=== PATIENT | male | born 1975 | race Caucasian/White ===

== ENCOUNTER 2017-07-25 08:10 | Emergency (ER) | payer OTHER ==
[~2017-07-25] VITALS: Ht 188 cm; Wt 95.0 kg
[~2017-07-25 08:10] MED LIST: PROT40TA PO
[2017-07-25 08:11] VITALS: BP 122/69; PULSE 85; RESP 16; TEMP 97.9; O2SAT 97
[2017-07-25 09:01] LABS: BLOOD, URINE TRACE (NEG); GLUCOSE,URINE NEG (NEG); KETONE, URINE NEG (NEG); NITRITE,URINE NEG (NEG); PH, URINE 6.5 (5.0-8.5)
[2017-07-25 09:13] LABS: METHOD OF COLLECTION CLEAN CATCH; URINE COLOR YELLOW (YELLW/STRAW)
[2017-07-25 09:14] LABS: COMMENT (UR) CULT NOT INDICATED; CULTURE IF INDICATED CULT NOT INDICATED; RBC, URINE 0-3 /hpf (0-3); WBC, URINE 0-2 /hpf (0-5)
--- NOTE | 2017-07-25 09:46 | PD ---
HPI Chief Complaint: Complaint Time Seen by Provider: 09:30 Travel History International Travel<30 days: No Contact w/Intl Traveler<30days: No Traveled to known affect area: No History of Present Illness HPI 42-year-old male here requesting treatment for STD. Patient states he had unprotected intercourse female partner approximately 6 days ago and has had burning urination since. He denies testicular pain. He denies penile or testicular lesions. He denies abdominal pain. No fever or chills. PFSH Past Medical History Medical History: Denies Significant Hx Ulcer: Yes Influenza Vaccination: No Past Surgical History Oral Surgery: Yes (TONSILLECTOMY) Tonsillectomy: Yes Social History Alcohol Use: Yes (CASUAL ) Tobacco Use: No Substance Use: Yes (MARIJUANA USE) Allergies-Medications (Allergen,Severity, Reaction): Coded Allergies: No Known Allergies (Verified Adverse Reaction, Unknown, 07/25/17) Reported Meds & Prescriptions Reported Meds & Active Scripts Active No Active Prescriptions or Reported Medications Review of Systems Except as stated in HPI: all other systems reviewed are Neg General / Constitutional: No: Fever Genitourinary: Positive: Dysuria Physical Exam Narrative GENERAL: Alert well-appearing male. SKIN: Warm and dry. HEAD: Normocephalic. EYES: No scleral icterus. No injection or drainage. NECK: Supple, trachea midline. No JVD or lymphadenopathy. CARDIOVASCULAR: Regular rate and rhythm without murmurs, gallops, or rubs. RESPIRATORY: Breath sounds equal bilaterally. No accessory muscle use. GASTROINTESTINAL: Abdomen soft, non-tender, nondistended. : Patient declined exam. He denies penile or testicular lesions or swelling. BACK: Nontender without obvious deformity. No CVA tenderness. Data Data Last Documented VS Vital Signs Date Time Temp Pulse Resp B/P (MAP) Pulse Ox O2 Delivery O2 Flow Rate FiO2 07/25/17 08:11 97.9 85 16 122/69 (86) 97 Orders Orders Urinalysis - C+S If Indicated (07/25/17 08:47) Gc And Chlamydia Pcr (07/25/17 08:47) Ed Discharge Order (07/25/17 09:46) Azithromycin Powd Pack (Zithromax Powd P (07/25/17 10:00) Ceftriaxone Inj (Rocephin Inj) (07/25/17 10:00) Lidocaine 1% Inj (50 Ml) (Xylocaine 1% I (07/25/17 10:00) Labs Laboratory Tests Test 07/25/17 08:40 Urine Collection Type CLEAN CATCH Urine Color YELLOW Urine Turbidity CLEAR Urine pH 6.5 Urine Specific [place] 1.020 Urine Protein NEG mg/dL Urine Glucose (UA) NEG mg/dL Urine Ketones NEG mg/dL Urine Occult Blood TRACE Urine Nitrite NEG Urine Bilirubin NEG Urine Leukocyte Esterase NEG Urine RBC 0-3 /hpf Urine WBC 0-2 /hpf Microscopic Urinalysis Comment CULT NOT INDICATED MDM Medical Decision Making Medical Screen Exam Complete: Yes Emergency Medical Condition: Yes Differential Diagnosis Urethritis, UTI, other Narrative Course 42-year-old male here requesting treatment for STD. Patient states he had unprotected intercourse approximately 6 days ago and has had burning urination since. He denies testicular pain. He denies penile or testicular lesions. He declined genital exam emergency room. His UA was negative for infection. Patient will be treated empirically for GC chlamydia. Diagnosis Primary Impression: Dysuria Referrals: Primary Care Physician Additional Instructions: Follow-up with her primary doctor. Scripts No Active Prescriptions or Reported Meds Disposition: 01 DISCHARGE HOME Condition: Stable Alix Patterson Jul 25, 2017 09:46
[2017-07-25] MEDS ORDERED: cefTRIAXone 250 MG VIAL IM ONE (10:00)
[2017-07-25] MEDS ORDERED: AZITHROMYCIN PWD FOR SUSP 1 GM PACKET PO ONE (10:00)
[2017-07-25] MEDS ORDERED: LIDOCAINE HCL 1% 50 ML VIAL IM ONE (10:00)
[2017-07-25 16:00] LABS: CHLAMYDIA PCR NOT DETECTED (NOT DETECT); NEISSERIA PCR NOT DETECTED (NOT DETECT)
== END 2017-07-25 10:36 | disposition home or self-care (01) ==
LOC: PHED 08:10 → PHEFT 10:36
DX: R30.0 Dysuria (principal)
CPT/HCPCS: 81001; 87491; 87591; 96372; 99284; J0696